=== PATIENT | female | born 1995 | race Caucasian/White ===

== ENCOUNTER → 2017-12-22 | Day surgery (SDC) | payer OTHER ==
[2017-12-16 11:04] VITALS: BMI 22.0
[~2017-12-22] VITALS: Ht 160 cm; Wt 56.8 kg
[~2017-12-22] MED LIST: BCPILLS PO; FENTANYL CITRATE INJ 50 MCG/1 ML 2 ML VIAL ONE; LIDOCAINE HCL 2% 2 ML VIAL (20MG/ML) ONE; ONDANSETRON INJ 2 MG/ML 2 ML VIAL ONE; PANT40TA PO; PROPOFOL IV EMULSION 10 MG/ML 20 ML VIAL IV ONE; SODIUM CHLORIDE 0.9% 500ML 500 ML IV ONE; SULF800T23 PO; TETR1CAP7 PO
[2017-12-22 14:52] VITALS: Ht 160 cm; Wt 56.8 kg
--- NOTE | 2017-12-22 15:34 | Endo History and Physical ---
History & Physical Date of Service: Dec 22, 2017. Chief Complaint: bloody emesis Referring Physician: ANCELMO FARIA History of Present Illness 22 yo CF who presents for EGD secondary to hematemesis and GERD. Past Surgical History Hx Cardiac Surgery: No Hx Internal Defibrillator: No Hx Pacemaker: No Hx Abdominal Surgery: Yes (APPY) Hx of Implantable Prosthesis: No Hx Post-Op Nausea and Vomiting: No Hx Cancer Surgery: No Hx Thoracic Surgery: No Hx Orthopedic: No Hx Urinary Tract Surgery: No Family History Colon CA Social History Smoking Status: Never Smoker Hx Substance Use: No Hx Alcohol Use: No (LAST DRINK IN JULY 2017 (HAS NOT SINCE THEN)) Allergies Coded Allergies: NO KNOWN DRUG ALLERGIES (Verified Allergy, Unknown, ., 12/22/17) Current Medications Reported Home Medications Medications Dose Route/Sig Max Daily Dose Days Date Category Control Pills (Miscellaneous) Tab 1 Tab PO QAM 12/16/17 Reported Tetracycline (Tetracycline Hcl) 500 Mg Cap 500 Mg PO BID 12/16/17 Reported Bactrim Ds 800MG/160MG (Trimethoprim/Sulfamethoxazole) Tab 1 Tab PO BID 12/16/17 Reported Protonix (Pantoprazole Sodium) 40 Mg Tab 40 Mg PO BID 12/16/17 Reported Vital Signs Weight (Kilograms): 56.82 Height (Feet): 5 Height (Inches): 3 Date Time Temp Pulse Resp B/P (MAP) Pulse Ox O2 Delivery O2 Flow Rate FiO2 12/22/17 15:01 37.0 129 18 146/75 (98) 99 Room Air Physical Exam General Appearance: WD/WN, no apparent distress Respiratory/Chest: Auscultation: breath sounds normal Cardiovascular: Heart Auscultation: RRR Abdomen: Bowel Sounds: normal Inspection & Palpation: soft, non-distended, no tenderness, guarding & rebound Assessment and Plan Assessment: 22 yo CF who presents for EGD secondary to hematemesis and GERD. Plan: Proceed with EGD.
--- NOTE | 2017-12-22 16:08 | GI REPORT ---
Procedure Date: 12/22/2017 3:37 PM Procedure: Upper GI endoscopy Indications: Dysphagia, Suspected gastro-esophageal reflux disease, Hematemesis Medicines: Monitored Anesthesia Care Complications: No immediate complications. Estimated Blood Loss: Estimated blood loss: none. Procedure: Pre-Anesthesia Assessment: - Prior to the procedure, a History and Physical was performed, and patient medications and allergies were reviewed. The patient's tolerance of previous anesthesia was also reviewed. The risks and benefits of the procedure and the sedation options and risks were discussed with the patient. All questions were answered, and informed consent was obtained. Prior Anticoagulants: The patient has taken no previous anticoagulant or antiplatelet agents. ASA Grade Assessment: II - A patient with mild systemic disease. After reviewing the risks and benefits, the patient was deemed in satisfactory condition to undergo the procedure. After obtaining informed consent, the endoscope was passed under direct vision. Throughout the procedure, the patient's blood pressure, pulse, and oxygen saturations were monitored continuously. The scope was introduced through the mouth, and advanced to the second part of duodenum. The upper GI endoscopy was accomplished without difficulty. The patient tolerated the procedure well. Findings: Four cratered esophageal ulcers with no bleeding and no stigmata of recent bleeding were found. The largest lesion was 3 mm in largest dimension. Biopsies were taken with a cold forceps for histology. A TTS dilator was passed through the scope. Dilation with an 18-19-20 mm balloon dilator was performed to 20 mm at the gastroesophageal junction. The entire examined stomach was normal. Biopsies were taken with a cold forceps for Helicobacter pylori testing. The examined duodenum was normal. Biopsies for histology were taken with a cold forceps for evaluation of celiac disease. Impression: - Non-bleeding esophageal ulcers. Biopsied. - Normal stomach. Biopsied. - Normal examined duodenum. Biopsied. - Dilation performed at the gastroesophageal junction. Recommendation: - Resume previous diet. - Continue present medications. - Await pathology results. - Return to primary care physician as previously scheduled. Morgan Gomez, DO 12/22/2017 4:07:21 PM This report has been signed electronically. Note Initiated On: 12/22/2017 3:37 PM I attest to the content of the Intraoperative Record and orders documented therein, exceptions below
--- NOTE | 2017-12-22 16:08 | Discharge Instructions ---
Endoscopy Patient Instructions Date / Procedure(s) Performed Dec 22, 2017. EGD Allergy Information Coded Allergies: NO KNOWN DRUG ALLERGIES (Verified Allergy, Unknown, ., 12/22/17) Discharge Date / Findings Dec 22, 2017. Esophageal ulcers s/p biopsies Dilation of distal esophagus to 20 mm Gastric antrum biopsies Duodenal biopsies Medication Instructions OK to resume all medications today as prescribed Reported Home Medications Medications Dose Route/Sig Max Daily Dose Days Date Category Control Pills (Miscellaneous) Tab 1 Tab PO QAM 12/16/17 Reported Tetracycline (Tetracycline Hcl) 500 Mg Cap 500 Mg PO BID 12/16/17 Reported Bactrim Ds 800MG/160MG (Trimethoprim/Sulfamethoxazole) Tab 1 Tab PO BID 12/16/17 Reported Protonix (Pantoprazole Sodium) 40 Mg Tab 40 Mg PO BID 12/16/17 Reported Provider Instructions Activity Restrictions - No exercising or heavy lifting for 24 hours. - Do not drink alcohol the day of the procedure. - Do not drive a car or operate machinery until the day after the procedure. - Do not make any important decisions or sign important papers in 24 hours after the procedure. Following Day: - Return to full activity which may include returning to work/school. Diet Start your diet with liquids and light foods (jello, soup, juice, toast). Then eat your usual diet if not nauseated. Treatment For Common After Affects For mild abdominal pain, bloating, or excessive gas: - Rest - Eat lightly - Lie on right side Follow-Up Information Follow-up with Mat FARIA as scheduled Anesthesia Information What You Should Know You have had a procedure that required some medicine to reduce anxiety and discomfort. This treatment is called moderate sedation. After receiving the treatment, you may be sleepy, but you will be able to breathe on your own. The effects of the treatment may last for several hours. Follow these instructions along with Activity/Diet recommendations noted above: * Do NOT do anything where dizziness or clumsiness would be dangerous. * Rest quietly at home today, then you can be up and about tomorrow. * Have a responsible person stay with you the rest of today. * You may have had an I.V. today. If so, you may take the dressing off later today. Recommendations Call your doctor if: * Trouble breathing * Continuous vomiting for more than 24 hours * Temperature above 101 degrees * Severe abdominal pain or bloating * Pain not relieved by pain medicine ordered * There is increased drainage or redness from any incision * A large amount of rectal bleeding greater than 2-3 tablespoons. (If you had a polyp/s removed or have hemorrhoids, a small amount of blood - from the rectum is to be expected.) * You have any unanswered questions or concerns. IN THE EVENT OF A SERIOUS EMERGENCY, GO TO THE NEAREST EMERGENCY ROOM Your discharge instructions were prepared by provider Morgan Gomez. Patient Instructions Signature Page Ama Winter Patient (or Guardian) Signature/Date: I have read and understand the instructions given to me by my caregivers. Caregiver/RN/Doctor Signature/Date: The above-named patient and/or guardian has received patient instructions on this date. + Original Patient Signature Page (only) stays with chart. Please make copy for patient.
--- NOTE | 2017-12-22 16:17 | Anesthesiology Progress Note ---
Anesthesia Post Op Note Date & Time Dec 22, 2017 at 16:17 Vital Signs Pain Intensity: 0 Vital Signs Past 12 Hours Date Time Temp Pulse Resp B/P (MAP) Pulse Ox O2 Delivery O2 Flow Rate FiO2 12/22/17 16:11 109 20 98/51 (67) 99 Room Air 12/22/17 15:25 120 12/22/17 15:15 108 12/22/17 15:01 37.0 129 18 146/75 (98) 99 Room Air Notes Mental Status: alert / awake / arousable, participated in evaluation Pt Amnestic to Procedure: Yes Nausea / Vomiting: adequately controlled Pain: adequately controlled Airway Patency, RR, SpO2: stable & adequate BP & HR: stable & adequate Hydration State: stable & adequate Anesthetic Complications: no major complications apparent
[2017-12-22 16:40] VITALS: BP 115/71; PULSE 105; O2SAT 95
== END | disposition home or self-care (01) ==
LOC: C.GI 14:37
PROVIDERS: ATTEND Internal Medicine
DX: K92.0 Hematemesis (principal); K22.10 Ulcer of esophagus without bleeding; K29.50 Unspecified chronic gastritis without bleeding; R13.10 Dysphagia, unspecified